=== PATIENT | female | born 1975 | race Caucasian/White ===

== ENCOUNTER 2022-02-09 06:33 | Inpatient (IN) | payer OTHER ==
[2022-02-08 11:52] VITALS: BMI 34.7
[2022-02-09] MEDS ORDERED: ONDANSETRON 4 MG/2 ML VIAL IVPUSH PRN ×2 (06:55→11:06)
[2022-02-09] MEDS ORDERED: ACETAMINOPHEN 1000 MG/100 ML BAG IVPB ONE (06:56)
[2022-02-09] MEDS ORDERED: LACTATED RINGERS SOLUTION 1,000 ML IV SCH (07:00)
[2022-02-09] MEDS ORDERED: CEFAZOLIN 2 GM in DEXTROSE 5%-WATER - 100 ML IVPB ONE (07:00)
[2022-02-09] MEDS ORDERED: PROPOFOL 20 ML ONE ×7 (07:28→10:26)
[2022-02-09] MEDS ORDERED: GLYCOPYRROLATE 0.2 MG/1 ML VIAL ONE (07:28)
[2022-02-09] MEDS ORDERED: LIDOCAINE HCL 2% 100 MG/5 ML DISP.SYRIN ONE (07:28)
[2022-02-09] MEDS ORDERED: MIDAZOLAM HCL 2 MG/2 ML SINGLE DOSE VIAL ONE ×2 (07:53→10:21)
[2022-02-09] MEDS ORDERED: BUPIVACAINE HCL/EPINEPHRINE/PF 30 ML VIAL IJ ONE ×2 (08:55)
[2022-02-09] MEDS ORDERED: BISACODYL 5 MG TABLET.DR (FP) PO PRN (11:06)
[2022-02-09] MEDS ORDERED: SIMETHICONE 80 MG TAB.CHEW (FP) PO PRN (11:06)
[2022-02-09] MEDS ORDERED: DOCUSATE SODIUM 100 MG CAPSULE (FP) PO PRN (11:06)
[2022-02-09] MEDS ORDERED: SODIUM CHLORIDE 1,000 ML IV SCH (11:15)
[2022-02-09] MEDS ORDERED: ACETAMINOPHEN INJECTION 100 ML IVPB ONE (11:33)
[2022-02-09] MEDS ORDERED: DEXAMETHASONE SOD PHOSPHATE 4 MG/1 ML VIAL ONE (11:48)
[2022-02-09] MEDS ORDERED: ACETAMINOPHEN 1000 MG/100 ML BAG IVPB PRN (12:00)
[2022-02-09] MEDS: oxyCODONE HCL 5 MG TABLET PO PRN (13:34)
[2022-02-09] MEDS ORDERED: IBUPROFEN 800 MG/8 ML IJ IVPB PRN (14:55)
[2022-02-09] MEDS ORDERED: CEFAZOLIN 1 GM in DEXTROSE 5%-WATER - 50 ML IVPB SCH ×2 (16:00→16:15)
[2022-02-09] MEDS: CEFAZOLIN 1 GM in DEXTROSE 5%-WATER - 50 ML IVPB SCH ×2 (16:47→23:31)
[2022-02-09] MEDS ORDERED: ACETAMINOPHEN 1000 MG/100 ML BAG IVPB SCH (17:00)
[2022-02-09] MEDS: KETOROLAC TROMETHAMINE 30 MG/1 ML VIAL IVPUSH SCH (21:10)
[2022-02-09 23:28] VITALS: RESP 18
[2022-02-10] MEDS: KETOROLAC TROMETHAMINE 30 MG/1 ML VIAL IVPUSH SCH ×2 (01:19→09:27)
[2022-02-10] MEDS: CEFAZOLIN 1 GM in DEXTROSE 5%-WATER - 50 ML IVPB SCH (08:44)
[2022-02-10] MEDS: oxyCODONE HCL 5 MG TABLET PO PRN (08:58)
[2022-02-10 08:59] LABS: HEMATOCRIT 37.8 % (32.4-45.2); HEMOGLOBIN 12.8 GM/dL (10.7-15.3); MCH 31.3 pg (25.7-33.7); MCHC 33.9 g/dl (32.0-36.0); MEAN CELL VOLUME 92.1 fl (80-96); MEAN PLT VOLUME 8.7 fl (7.5-11.1); PLATELET COUNT 202 10^3/uL (134-434); RBC 4.11 M/mm3 (3.60-5.2); RDW 13.6 % (11.6-15.6); WHITE BLOOD COUNT 9.3 K/mm3 (4.0-10.0)
[2022-02-10 09:50] LABS: CALCIUM 8.1 mg/dL (8.5-10.1)
[2022-02-10 09:52] LABS: BLOOD UREA NITROGEN 11.9 mg/dL (7-18)
[2022-02-10 09:54] LABS: CREATININE 0.6 mg/dL (0.55-1.3)
[2022-02-10 10:42] VITALS: BP 120/61; PULSE 68; TEMP 98
[2022-02-10] MEDS ORDERED: IBUPROFEN 600 MG TABLET (FP) PO PRN (18:00)
[2022-02-10] MEDS ORDERED: ACETAMINOPHEN 325 MG TABLET (FP) PO PRN (23:00)
== END 2022-02-10 16:55 | disposition home or self-care (01) | DRG 513 ==
LOC: J2C 06:33 → J6S 13:14
PROVIDERS: ADMIT Specialist; ATTEND Specialist
PROC: 0UQF3ZZ Repair Cul-de-sac, Percutaneous Approach (ICD-10-PCS; 2022-02-09)
PROC: 0JQC3ZZ Repair Pelvic Region Subcutaneous Tissue and Fascia, Percutaneous Approach (ICD-10-PCS; 2022-02-09)
PROC: 0UT97ZZ Resection of Uterus, Via Natural or Artificial Opening (ICD-10-PCS; principal; 2022-02-09 08:00)
DX: N81.4 Uterovaginal prolapse, unspecified (principal); D25.9 Leiomyoma of uterus, unspecified; N80.03 Adenomyosis of the uterus
CPT/HCPCS: 36415; 80048; 81025; 85027; 88302-TC; 88307-TC; 94010; 94760